=== PATIENT | female | born 1945 | race Caucasian/White ===

== ENCOUNTER 2021-03-09 20:11 | Emergency (ER) | payer MEDICARE ==
[~2021-03-09] VITALS: Ht 167.6 cm; Wt 77.1 kg
[2021-03-09 20:40] VITALS: BP 117/72
--- NOTE | 2021-03-09 20:46 | DIREP ---
PROCEDURE:CHEST 1 VIEW COMPARISON:None. INDICATIONS:syncope FINDINGS: LUNGS/PLEURA:No significant pulmonary parenchymal abnormalities. No effusions. The lungs are mildly hyperexpanded. No pneumonia, heart failure or effusions are seen. VASCULATURE:Normal. Unremarkable pulmonary vasculature. CARDIAC:Normal. No cardiac silhouette abnormality or cardiomegaly. MEDIASTINUM:Normal. No visible mass or adenopathy. BONES:Normal. No fracture or visible bony lesion. DJD in the AC joints bilaterally. OTHER:Negative. CONCLUSION:No acute disease. Dictated by: Kulwinder Redman MD on 03/09/2021 at 08:44 PM
[2021-03-09 20:48] LABS: BASOPHIL # 0.1 10^3/uL (0.0-0.1); BASOPHIL % 0.5 % (0.0-0.2); EOSINOPHIL # 0.4 10^3/uL (0.0-0.2); LYMPHOCYTES # 1.47 10^3/uL1 (1.0-4.8); LYMPHOCYTES % 14.8 % (24.0-44.0); MONOCYTES # 0.5 10^3/uL (0.3-0.8); MONOCYTES % 4.7 % (5.0-12.0); NEUTROPHIL # 7.5 10^3/uL (1.8-7.7); NEUTROPHILS % 75.9 % (41.0-85.0); PLATELET COUNT 265 10^3/uL (150-400); RED CELL DISTRIBUTION WIDTH 11.3 % (11.5-14.5)
--- NOTE | 2021-03-09 21:00 | ER.PDOC ---
General Chief Complaint: Trauma Stated Complaint: PASSED OUT/FALL TRAVEL OUT OF US: No Time seen by MD: 20:20 Source: patient Exam Limitations: no limitations History of Present Illness Initial Comments 75-year-old female with no significant past medical history presents to the emergency department with complaint of near syncope and fall. Per patient she was getting out of the hot tub and became lightheaded her knees buckled and she fell onto her behind. She denies any actual loss of consciousness chest pain shortness of breath nausea vomiting or other cardiac type symptoms. On further history taking patient tells me that she has had very little to eat today. She states she had an eggAnd banana for breakfast followed by string cheese egg and a handful of broccoli for lunch she then proceeded to ride her bike for an hour and to go swimming for 30 minutes she had an apple and some grapes about an hour before she got into the hot tub. Patient states she was in the hot tub for about 1520 minutes. She denies having any history of cardiac issues however her mother did have a heart attack in her 70s her father had a history of coronary artery disease but no MIs and her sister has A. fib and is obese. Her surgical history consist of gallbladder and hysterectomy. She does not take any medications on a regular basis. Allergies: Coded Allergies: metronidazole (Verified Allergy, Unknown, 03/09/21) Past Medical History Medical History: no pertinent history Surgical History: cholecystectomy, hysterectomy Social History Alcohol Use: none Drug Use: none Review of Systems Constitutional: other (Lightheaded) EENTM: no symptoms reported Cardiovascular: no symptoms reported Gastrointestinal: no symptoms reported Musculoskeletal: other (Right [place] pain) Skin: no symptoms reported Physical Exam General Appearance: No Apparent Distress, WD/WN EENT: nml ENT inspection Neck: Non-Tender, Full Range of Motion, Supple Respiratory: chest non-tender, lungs clear, normal breath sounds, no respiratory distress CVS: reg rate & rhythm, no murmur, no gallop, pulses nml, nml capillary refill Gastrointestinal: Normal Bowel Sounds, Non Tender Back: Normal Inspection, No CVA Tenderness Extremities: Normal Range of Motion, Non-Tender, Normal Inspection, Other (Patient has tenderness to palpation over her posterior right hip however she has normal range of motion and ambulated without pain or distress into the emergency department. There is no ecchymosis noted.) Neurologic/Psychiatric: beveler II-XII NML as Tested, No Motor/Sensory Deficits, Alert, Normal Mood/Affect, Oriented x 3 Skin: Normal Color, Warm/Dry Results/Orders Results/Orders Orders - IVAN LAYNE MD Cbc With Auto Diff (03/09/21 20:20) Comprehensive Metabolic Panel (03/09/21 20:20) Creatine Kinase Mb (03/09/21 20:20) Troponin I (03/09/21 20:20) PT (03/09/21 20:20) Partial Thromboplastin Time. (03/09/21 20:20) Xr Chest 1v (03/09/21 20:20) Ekg-Routine (03/09/21 20:20) Saline Lock (03/09/21 20:20) Urinalysis (03/09/21 20:20) Urine Culture (03/09/21 21:00) 0.9 % Sodium Chloride (Ns 1000ml) (03/09/21 21:40) 0.9 % Sodium Chloride (Ns 1000ml) (03/09/21 21:41) Vital Signs Date Time Temp Pulse Resp B/P (MAP) Pulse Ox O2 Delivery O2 Flow Rate FiO2 03/09/21 21:40 98.1 72 16 112/71 (85) 95 Room Air 03/09/21 20:47 16 03/09/21 20:40 98.1 89 16 97 03/09/21 20:40 98.1 89 16 03/09/21 20:40 98.1 89 16 117/72 (87) 97 Room Air Administered Medications Medications (Trade) Dose Ordered Sig/[place] Route PRN Reason Start Time Stop Time Status Last Admin Dose Admin Sodium Chloride 1,000 ml @ 1,000 mls/hr Q1H STAT IV 03/09/21 21:40 03/09/21 22:39 03/09/21 21:44 1,000 MLS/HR Laboratory Tests Test 03/09/21 20:40 03/09/21 21:00 White Blood Count 9.9 10^3/uL (4.5-11.0) Red Blood Count 4.55 10^6/uL (4.00-5.20) Hemoglobin 14.1 g/dL (12.0-15.0) Hematocrit 40.1 % (36.0-46.0) Mean Corpuscular Volume 88.1 fL (78-100) Mean Corpuscular Hemoglobin 31.0 pg (26-34) Mean Corpuscular Hemoglobin Concent 35.2 g/dL (33-36.5) Red Cell Distribution Width 11.3 % (11.5-14.5) L Platelet Count 265 10^3/uL (150-400) Mean Platelet Volume 10.2 fL (7.8-11.0) Neutrophils (%) (Auto) 75.9 % (41.0-85.0) Lymphocytes (%) (Auto) 14.8 % (24.0-44.0) L Monocytes (%) (Auto) 4.7 % (5.0-12.0) L Neutrophils # (Auto) 7.5 10^3/uL (1.8-7.7) Lymphocytes # (Auto) 1.47 10^3/uL1 (1.0-4.8) Monocytes # (Auto) 0.5 10^3/uL (0.3-0.8) Absolute Immature Granulocyte (auto 0.01 10^3 u/L (0-2) Absolute Eosinophils (auto) 0.4 10^3/uL (0.0-0.2) H Immature Granulocytes % 0.10 % (0.00-0.50) Eosinophils % 4.0 % (0.0-5.0) Basophils % 0.5 % (0.0-0.2) H Basophils # 0.1 10^3/uL (0.0-0.1) Prothrombin Time 10.8 SEC (9.6-12.0) Prothrombin Time INR (Non-Therap) 1.0 Activated Partial Thromboplast Time 19.5 SEC (24.67-30.72) Sodium Level 137 mmol/L (132-145) Potassium Level 4.6 mmol/L (3.6-5.2) Chloride Level 102.0 mmol/L (96-109) Carbon Dioxide Level 23.6 mmol/L (20.0-32) Anion Gap 16.0 Blood Urea Nitrogen 31 mg/dL (7-18) H Creatinine 0.88 mg/dL (0.59-1.40) Estimated GFR () 76.2 (>/=60) Est GFR (CKD-EPI)(Non-Afr [place]) 63.0 (>/=60) BUN/Creatinine Ratio 35.0 Glucose Level 169 mg/dL (70-110) H Calcium Level 9.3 mg/dL (8.4-10.5) Total Bilirubin 0.5 mg/dL (0.2-1.0) Aspartate Amino Transferase (AST) 25 U/L (0-35) Alanine Aminotransferase (ALT) 30 U/L (12-78) Alkaline Phosphatase 64 U/L (50-136) Creatine Kinase MB 2.3 ng/mL (0.5-3.6) Troponin I < 0.02 ng/mL (0.00-0.05) Total Protein 7.9 g/dL (6.4-8.2) Albumin 3.6 g/dL (3.4-5.0) Globulin 4.3 Albumin/Globulin Ratio 0.837 Urine Collection Type RANDOM Urine Color YELLOW Urine Appearance TURBID Urine Bilirubin NEGATIVE (NEGATIVE) Urine Ketones NEGATIVE (NEGATIVE) Urine Specific [place] 1.025 (1.005-1.030) Urine pH 5.5 (4.5-8.0) Urine Protein NEGATIVE (NEGATIVE) Urine Urobilinogen 0.2 E.U./dL (0.2) Urine Nitrate NEGATIVE (NEGATIVE) Urine Leukocyte Esterase LARGE (NEGATIVE) H Urine Glucose (Auto)(UA) NEGATIVE (NEGATIVE) Urine Blood NEGATIVE (NEGATIVE) Urine RBC 0-2 RBC/HPF (NONE SEEN) Urine WBC TNTC WBC/HPF (0-2) H Urine Squamous Epithelial Cells MODERATE #/HPF (FEW) Urine Bacteria FEW (NONE SEEN) H Progress Progress Patient's urinalysis is positive for urinary tract infection her chemistry shows she is dehydrated with a BUN/creatinine ratio of approximately 33 otherwise her laboratory studies are within normal limits her EKG shows a normal sinus rhythm with a rate of [address]-T wave changes are noted. Patient is feeling well alert oriented no acute distress outside of her right posterior hip soreness she denies any pain. She is aware of her lab results and she will receive IV fluids here in the emergency department prior to discharge. She admits she does not drink much water on a regular basis. ER DEPART Departure Time of Disposition: 22:16 Disposition: 01 HOME, SELF-CARE Impression: Primary Impression: Near syncope Additional Impressions: Dehydration UTI (urinary tract infection) Condition: Stable Referrals: PCP,UNKNOWN (PCP) PRIMARY CARE PROVIDER Duration or Time Spent with Pa: 17 min Return to Work/School Can a patient return to work?: Yes Can a patient return to school: Yes Problem Qualifiers IVAN LAYNE MD Mar 09, 2021 21:00
--- NOTE | 2021-03-09 21:01 | PCM.EKG ---
[facility] Test Date: 2021-03-09 Test Time: 20:55:41 Pat Name: SUSSY COLES Department: Room: Gender: F [employer] Install[employer]: ED : 1945 Requested By: IVAN LAYNE Order Number: [id number] Reading MD: Measurements Intervals [place] Rate: 70 P: 73 ID: [id number] QRS: 19 QRSD: 82 T: 70 QT: 393 QTc: 425 Interpretive Statements Sinus rhythm Consider left atrial enlargement No previous ECG available for comparison Please click the below link to view image of tracing.
[2021-03-09 21:11] LABS: ALANINE AMINOTRANSFERASE(ML) 30 U/L (12-78); ALKALINE PHOSPHATASE 64 U/L (50-136); ASPARTATE AMINO TRANSFERASE 25 U/L (0-35); CALCIUM 9.3 mg/dL (8.4-10.5); CARBON DIOXIDE 23.6 mmol/L (20.0-32); GLUCOSE 169 mg/dL (70-110)
[2021-03-09 21:20] LABS: BILIRUBIN,URINE NEGATIVE (NEGATIVE); UA COLOR YELLOW; UROBILINOGEN,URINE 0.2 E.U./dL (0.2)
[2021-03-09 21:40] VITALS: BP 112/71
[2021-03-09] MEDS ORDERED: NS 1000ML 1,000 ML IV STA (21:40)
[2021-03-09] MEDS ORDERED: NS 1000ML 1,000 ML ONE (21:41)
--- NOTE | 2021-03-09 22:24 | NUR ---
IV DC'D TIP INTACT, NO BLEEDING
[2021-03-09 22:25] VITALS: BP 165/102
== END 2021-03-09 22:25 | disposition home or self-care (01) ==
LOC: ER 20:11
DX: E86.0 Dehydration (principal); N39.0 Urinary tract infection, site not specified; R55 Syncope and collapse; M54.5 Low back pain; Z82.49 Family history of ischemic heart disease and other diseases of the circulatory system; Z88.1 Allergy status to other antibiotic agents; Z90.49 Acquired absence of other specified parts of digestive tract
CPT/HCPCS: 36415; 71045; 80053; 81000; 81003; 82553; 84484; 85025; 85610; 85730; 87086; 93005; 96360; 99285; J7030